=== PATIENT | female | born 2000 | race Caucasian/White ===

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

== ENCOUNTER 2018-03-05 20:39 | Emergency (ER) | payer MEDICAID ==
[~2018-03-05] VITALS: Ht 165.1 cm; Wt 54.4 kg
[~2018-03-05 20:39] MED LIST changes: +PSEUDOEPHEDRINE60 MG PO
--- NOTE | 2018-03-05 21:05 | NUR ---
ED Nurse Note: abdominal pain with nausea and body aches since am, no emesis, complains of lower abdomen pain that is 10/10, patient is ambulatory and is accompanied by mom
[2018-03-05 21:09] VITALS: BP 132/78
--- NOTE | 2018-03-05 21:29 | Emergency Room Report ---
History of Present Illness General Chief Complaint: Abdominal Pain Source: Patient Present Illness HPI Patient presents with complaints of mid epigastric abdominal pain diffuse abdominal cramping patient reports that she had an egg this morning around noon And since then she had increased cramping and epigastric discomfort she did vomit one time denies any diarrhea Denies any fevers however she has had some chills Denies any dysuria or frequency denies any flank pain denies any other trauma she also reports some diffuse body aches and cramping Denies any neck pain or photophobia Allergies: Coded Allergies: NO KNOWN ALLERGIES (Unverified Allergy, Unknown, 03/05/18) Patient History Past Medical History: see triage record Pertinent Family History: none Last Menstrual Period: [id number] Now: No Reviewed Nursing Documentation: PMH: Agreed; PSxH: Agreed Review of Systems All Other Systems: negative except mentioned in HPI Physical Exam Vital Signs Date Time Temp Pulse Resp B/P (MAP) Pulse Ox O2 Delivery O2 Flow Rate FiO2 03/05/18 21:02 98.8 88 91/62 97 Room Air Sp02 EP Interpretation: reviewed, normal General Appearance: well appearing, no apparent distress Head: normocephalic, atraumatic Eyes: bilateral eye PERRL, bilateral eye EOMI ENT: hearing grossly normal, normal pharynx, TMs + canals normal, uvula midline Neck: full range of motion, supple, no meningismus, no bony tend Respiratory: lungs clear, normal breath sounds, no rhonchi, no respiratory distress, no retraction, no accessory muscle use Cardiovascular #1: normal peripheral pulses, regular rate, rhythm, no edema, no gallop, no JVD, no murmur Gastrointestinal: normal bowel sounds, non tender - However points to the epigastric area for discomfort, soft, no mass, no organomegaly, non-distended, no guarding, no hernia, no pulsatile mass, no rebound Genitourinary: no CVA tenderness Musculoskeletal: normal inspection Neurologic: oriented x3, responsive, hydrogen plant operator III-XII nml as tested, motor strength/ tone normal, sensory intact Psychiatric: mood/affect normal Skin: normal color, no rash, warm/dry, palpation normal Lymphatic: normal inspection, no adenopathy Medical Decision Making Diagnostic Impression: Primary Impression: Abdominal pain Additional Impression: Vomiting ER Course With the patient's history and examination, multiple differentials considered, including but not limited to , ectopic , ovarian torsion, gastritis, cholecystitis, pancreatitis, appendicitis Given the patient's presentation extensive blood work initiated at this time Most of the discomfort is localized to the epigastric region lower abdomen remains soft Patient did not have any further imaging at this time blood work all within normal limits on reevaluation patient reports feeling significantly improved given the episode of vomiting and diarrhea Questionable food intake patient will have close outpatient follow-up and return with any changes Repeat abdominal exam continues to show a soft lower abdomen and appendicitis, ovarian torsion remains low on the differential Labs Test 03/05/18 22:00 White Blood Count 6.4 K/UL (4.8-10.8) Red Blood Count 5.12 M/UL (4.20-5.40) Hemoglobin 13.9 G/DL (12.0-16.0) Hematocrit 42.1 % (37.0-47.0) Mean Corpuscular Volume 82 FL (80-99) Mean Corpuscular Hemoglobin 27.2 PG (27.0-31.0) Mean Corpuscular Hemoglobin Concent 33.1 G/DL (32.0-36.0) Red Cell Distribution Width 11.7 % (11.6-14.8) Platelet Count 194 K/UL (150-450) Mean Platelet Volume 7.9 FL (6.5-10.1) Neutrophils (%) (Auto) % (45.0-75.0) Lymphocytes (%) (Auto) % (20.0-45.0) Monocytes (%) (Auto) % (1.0-10.0) Eosinophils (%) (Auto) % (0.0-3.0) Basophils (%) (Auto) % (0.0-2.0) Differential Total Cells Counted 100 Neutrophils % (Manual) 85 % (45-75) Lymphocytes % (Manual) 9 % (20-45) Monocytes % (Manual) 6 % (1-10) Eosinophils % (Manual) 0 % (0-3) Basophils % (Manual) 0 % (0-2) Band Neutrophils 0 % (0-8) Platelet Estimate Adequate Platelet Morphology Normal Red Blood Cell Morphology Normal Urine Color Yellow Urine Appearance Clear Urine pH 7 (4.5-8.0) Urine Specific [place] 1.010 (1.005-1.035) Urine Protein Negative (NEGATIVE) Urine Glucose (UA) Negative (NEGATIVE) Urine Ketones 4+ (NEGATIVE) Urine Blood Negative (NEGATIVE) Urine Nitrite Negative (NEGATIVE) Urine Bilirubin Negative (NEGATIVE) Urine Urobilinogen 1 MG/DL (0.0-1.0) Urine Leukocyte Esterase Negative (NEGATIVE) Urine HCG, Qualitative Negative (NEGATIVE) Sodium Level 139 MMOL/L (136-145) Potassium Level 4.5 MMOL/L (3.5-5.1) Chloride Level 103 MMOL/L (98-107) Carbon Dioxide Level 25 MMOL/L (21-32) Anion Gap 11 mmol/L (5-15) Blood Urea Nitrogen 12 mg/dL (7-18) Creatinine 0.8 MG/DL (0.55-1.30) Estimat Glomerular Filtration Rate > 60 mL/min (>60) Glucose Level 107 MG/DL (74-106) Calcium Level 9.4 MG/DL (8.5-10.1) Total Bilirubin 0.8 MG/DL (0.2-1.0) Aspartate Amino Transf (AST/SGOT) 15 U/L (15-37) Alanine Aminotransferase (ALT/SGPT) 18 U/L (12-78) Alkaline Phosphatase 70 U/L (46-116) Total Protein 7.8 G/DL (6.4-8.2) Albumin 4.3 G/DL (3.4-5.0) Globulin 3.5 g/dL Albumin/Globulin Ratio 1.2 (1.0-2.7) Lipase 125 U/L (73-393) Last Vital Signs Date Time Temp Pulse Resp B/P (MAP) Pulse Ox O2 Delivery O2 Flow Rate FiO2 03/05/18 21:02 98.8 88 91/62 97 Room Air Status: improved Disposition: HOME, SELF-CARE Condition: Improved Scripts Ondansetron (Zofran) 4 Mg Tablet 4 MG ORAL Q6H PRN for Nausea & Vomiting, #12 TAB Prov: Malinda Zuluaga DO 03/06/18 Additional Instructions: Patient is provided with the discharge instructions notified to follow up with primary doctor in the next 2-3 days otherwise return to the er with any worsening symptoms. Please note that this report is being documented using [employer] technology. This can lead to erroneous entry secondary to incorrect interpretation by the dictating instrument. Malinda Zuluaga DO Mar 05, 2018 21:29
[2018-03-05] MEDS ORDERED: Metoclopramide 10mg/2ml Inj IVP ONE (21:30)
[2018-03-05 22:28] LABS: APPEARANCE,URINE CLEAR; BILIRUBIN, URINE NEGATIVE (NEGATIVE); GLUCOSE, URINE (UA) NEGATIVE (NEGATIVE); HEMATOCRIT 42.1 % (37.0-47.0); HEMOGLOBIN 13.9 G/DL (12.0-16.0); KETONES,URINE 4+ (NEGATIVE); LEUKOCYTE ESTERASE ,URINE NEGATIVE (NEGATIVE); MEAN CORPUSCULAR VOLUME 82 FL (80-99); NITRITE,URINE NEGATIVE (NEGATIVE); PH,URINE 7 (4.5-8.0); PLATELET COUNT 194 K/UL (150-450); PROTEIN,URINE NEGATIVE (NEGATIVE); RED BLOOD COUNT 5.12 M/UL (4.20-5.40); RED CELL DISTRIBUTION WIDTH 11.7 % (11.6-14.8); UROBILINOGEN,URINE 1 MG/DL (0.0-1.0); WHITE BLOOD COUNT 6.4 K/UL (4.8-10.8)
[2018-03-05 22:31] LABS: COLOR,URINE YELLOW
[2018-03-05 22:37] LABS: ANION GAP 11 mmol/L (5-15); BLOOD UREA NITROGEN 12 mg/dL (7-18); CALCIUM 9.4 MG/DL (8.5-10.1); CARBON DIOXIDE 25 MMOL/L (21-32); CHLORIDE 103 MMOL/L (98-107); CREATININE 0.8 MG/DL (0.55-1.30); POTASSIUM 4.5 MMOL/L (3.5-5.1); SODIUM 139 MMOL/L (136-145)
[2018-03-05 22:41] LABS: ALANINE AMINOTRANSFERASE 18 U/L (12-78); ALBUMIN 4.3 G/DL (3.4-5.0); ALBUMIN/GLOBULIN RATIO 1.2 (1.0-2.7); ALKALINE PHOSPHATASE 70 U/L (46-116); ASPARTATE AMINO TRANSFERASE 15 U/L (15-37); BILIRUBIN,TOTAL 0.8 MG/DL (0.2-1.0)
[2018-03-06] MEDS ORDERED: ZOFRAN4 M1 ORAL (00:12)
[2018-03-06 00:30] VITALS: BP 101/60
--- NOTE | 2018-03-06 00:30 | NUR ---
ER Nurse Note: Pt seen, treated, medically treated by MURRAY. Discharge instructions and prescriptions given with repeat verbalization by pt. Instructed pt to follow up with primary care physcian within one week. Pt a&ox4, VSS, no signs of distress. IV removed; site clean and bandaged. ID band removed. Pt left with all belongings with steady gait via own transportation.
== END 2018-03-06 00:30 | disposition home or self-care (01) ==
LOC: EMR 21:11
DX: R10.13 Epigastric pain (principal); R11.10 Vomiting, unspecified
CPT/HCPCS: 36415; 80053; 81003; 81025; 83690; 85007; 85025; 96361; 96374; 99284; J2765

== ENCOUNTER 2018-08-09 03:13 | Emergency (ER) | payer MEDICAID ==
[~2018-08-09] VITALS: Ht 165.1 cm; Wt 54.4 kg
[~2018-08-09 03:13] MED LIST changes: +ZOFRAN4 M1 ORAL
[2018-08-09] MEDS ORDERED: NKM (03:20)
--- NOTE | 2018-08-09 03:35 | NUR ---
ED Nurse Note: PATIENT AMBULATED TO ED WITH C/O RASH ON BILATERAL LOWER LEGS AND SORE THROAT X4 DAYS. PT REPORTS RASH STARTED AFTER LASER HAIR REMOVAL.Pt is AO x 4times, VSS, on room air no distress. MURRAY seen Pt at bedside.
[2018-08-09 03:42] VITALS: BP 131/50
[2018-08-09] MEDS ORDERED: Lidocaine 2% Visc 15ml soln ORAL ONE (04:00)
[2018-08-09] MEDS ORDERED: PREDNISONE20 MG ORAL (04:11)
[2018-08-09] MEDS ORDERED: DIPHENHYDRAMINE25 M1 ORAL (04:11)
[2018-08-09 04:29] VITALS: BP 128/64
[2018-08-09 04:31] VITALS: BP 128/64
--- NOTE | 2018-08-09 04:31 | NUR ---
ER DISCHARGE NOTE: Patient is cleared to be discharged per ERMD, pt is aox4, on room air, with stable vital signs. pt was given dc and prescription instructions, pt was able to verbalize understanding, pt id band removed without complications. pt is able to ambulate with steady gait. pt took all belongings.
--- NOTE | 2018-08-09 05:45 | Emergency Room Report ---
History of Present Illness General Chief Complaint: Skin Rash/Abscess Source: Patient Present Illness HPI 18-year-old female presents ED for evaluation. Complaining of itchiness and rash to her legs. States that 4 days ago she had laser hair removal done and shortly after developed a rash. States it is itchy. Denies pain. Denies any known food or drug allergies. Also complaining of sore throat. Started last night. Pain is dull, 6 out of 10, nonradiating. Denies fevers or chills. Denies cough. Denies sick contacts or recent travel. No other aggravating relieving factors. Denies any other associated symptoms Allergies: Coded Allergies: NO KNOWN ALLERGIES (Unverified Allergy, Unknown, 03/05/18) Patient History Past Medical History: none Past Surgical History: none Pertinent Family History: none Social History: Denies: smoking, alcohol use, drug use Last Menstrual Period: 07/30/18 Now: No Immunizations: UTD Reviewed Nursing Documentation: PMH: Agreed; PSxH: Agreed Nursing Documentation-PMH Past Medical History: No Stated History Review of Systems All Other Systems: negative except mentioned in HPI Physical Exam Vital Signs Date Time Temp Pulse Resp B/P (MAP) Pulse Ox O2 Delivery O2 Flow Rate FiO2 08/09/18 03:15 98.4 91 14 111/46 (67) 97 Room Air Sp02 EP Interpretation: reviewed, normal General Appearance: no apparent distress, alert, GCS 15, non-toxic Head: normocephalic Eyes: bilateral eye normal inspection, bilateral eye PERRL ENT: hearing grossly normal, normal pharynx, no angioedema, normal voice, TMs + canals normal Neck: full range of motion, supple/symm/no masses Respiratory: normal inspection Cardiovascular #1: normal inspection Gastrointestinal: normal inspection Rectal: deferred Genitourinary: no CVA tenderness Musculoskeletal: normal inspection Neurologic: alert, oriented x3, responsive, motor strength/tone normal, sensory intact, speech normal Psychiatric: normal inspection Skin: rash - fine papular rash to legs. nonerythematous base Lymphatic: normal inspection Medical Decision Making Diagnostic Impression: Primary Impression: Pharyngitis Qualified Codes: J02.9 - Acute pharyngitis, unspecified Additional Impression: Rash and other nonspecific skin eruption ER Course Hospital Course 18-year-old female presents to ED with rash to legs. sore throat Differential diagnoses include: Cellulitis, dermatitis, insect bite, abscess Clinical course Patient placed on stretcher. After initial history, physical exam reveals a young female in no acute distress. On exam there fine papular rash noted to the legs. None erythematous base. No fluctuance or discharge. No pharyngeal erythema. No exudate. No lymphadenopathy. Likely viral. Because findings with patient. Will discharge with prednisone and Benadryl. Given viscous lidocaine here. given benedryl, prednisone here. Safe for discharge with close outpatient follow-up Diagnosis - pharyngitis, rash stable and discharged to home with prescription for prednisone, benedryl. Instructed to followup with PMD. Instructed return to ED if symptoms recur or worsen Last Vital Signs Date Time Temp Pulse Resp B/P (MAP) Pulse Ox O2 Delivery O2 Flow Rate FiO2 08/09/18 04:31 98.2 77 18 128/64 98 Room Air Status: improved Disposition: HOME, SELF-CARE Condition: Stable Scripts Diphenhydramine Hcl* (DIPHENHYDRAMINE HCL*) 25 Mg Capsule 25 MG ORAL Q6H PRN for Itching for 5 Days, #30 CAP 0 Refills Prov: Martir Kong MD 08/09/18 Prednisone* (PREDNISONE*) 20 Mg Tablet 40 MG ORAL DAILY, #10 TAB Prov: Martir Kong MD 08/09/18 Referrals: NON PHYSICIAN (PCP) Jeff Mooney [facility] Patient Instructions: Martir Ty MD Aug 09, 2018 05:45
== END 2018-08-09 04:53 | disposition home or self-care (01) ==
LOC: EMR 03:45
DX: J02.9 Acute pharyngitis, unspecified (principal); R21 Rash and other nonspecific skin eruption
CPT/HCPCS: 99282; J7512

== ENCOUNTER 2018-10-13 00:47 | Emergency (ER) | payer MEDICAID ==
[~2018-10-13] VITALS: Ht 165.1 cm; Wt 52.2 kg
[~2018-10-13 00:47] MED LIST changes: +DIPHENHYDRAMINE25 M1 ORAL; +PREDNISONE20 MG ORAL
[2018-10-13 01:00] VITALS: BP 102/65
--- NOTE | 2018-10-13 01:00 | NUR ---
ED Nurse Note: Esperanza walked into ED c/o bug bites that presents both feet bilaterally, patient is alert and oriented x4, states that she first noticed these rashes when she woke up, complains of 3/10 pain. will wait for further orders
[2018-10-13] MEDS ORDERED: Hydrocortisone 2.5% Oint 30gm TOPIC ONE (01:45)
[2018-10-13] MEDS ORDERED: DiphenhydrAMINE & Zinc 28g Cream TOPIC ONE (01:45)
[2018-10-13] MEDS ORDERED: Hydrocortisone 1% Cr 15gm TOPIC ONE (01:59)
[2018-10-13] MEDS ORDERED: Hydrocortisone 1% Cr 30gm TOPIC ONE (02:00)
--- NOTE | 2018-10-13 02:00 | Emergency Room Report ---
History of Present Illness General Chief Complaint: Skin Rash/Abscess Source: Patient Present Illness HPI 18-year-old female presents with multiple bites to her bilateral feet, patient endorses the bites to be itchy, severity is mild, no known aggravating relieving factors, she states she left that with no open wound over the past couple of nights, her feet were exposed. She has no screen in on her window. No fevers no chills no discharge. Allergies: Coded Allergies: NO KNOWN ALLERGIES (Unverified Allergy, Unknown, 03/05/18) Patient History Past Medical History: see triage record Last Menstrual Period: current Now: No Reviewed Nursing Documentation: PMH: Agreed; PSxH: Agreed Nursing Documentation-PMH Past Medical History: No Stated History Review of Systems All Other Systems: negative except mentioned in HPI Physical Exam Vital Signs Date Time Temp Pulse Resp B/P (MAP) Pulse Ox O2 Delivery O2 Flow Rate FiO2 10/13/18 00:53 98.2 55 18 102/65 (77) 98 Room Air Sp02 EP Interpretation: reviewed, normal General Appearance: well appearing, no apparent distress, alert Head: normocephalic, atraumatic Eyes: bilateral eye PERRL, bilateral eye EOMI ENT: uvula midline, moist mucus membranes Neck: supple, thyroid normal, supple/symm/no masses Respiratory: lungs clear, no respiratory distress, no retraction, no accessory muscle use Cardiovascular #1: normal peripheral pulses, regular rate, rhythm, no edema, no gallop, no murmur Gastrointestinal: non tender, soft, no guarding, no rebound Musculoskeletal: normal inspection Neurologic: alert, oriented x3 Psychiatric: mood/affect normal Skin: warm/dry, other - Multiple urticarial lesions on the bilateral feet, with punctate lesions in the middle no pus no drainage no fluctuance Medical Decision Making Diagnostic Impression: Primary Impression: Insect bite Qualified Codes: S90.862A - Insect bite (nonvenomous), left foot, initial encounter; W57.XXXA - Bitten or stung by nonvenomous insect and other nonvenomous arthropods, initial encounter ER Course Multiple bug bites to the feet, will provide patient with hydrocortisone cream and Benadryl cream, disposition home with return precautions Last Vital Signs Date Time Temp Pulse Resp B/P (MAP) Pulse Ox O2 Delivery O2 Flow Rate FiO2 8/24/19 01:00 98.2 69 18 102/65 98 Room Air Disposition: HOME, SELF-CARE Condition: Stable Referrals: NON PHYSICIAN (PCP) [facility] Jeff Aldana. [facility] Patient Instructions: Insect Bite, [id number] Additional Instructions: The patient was provided with discharge instructions, notified to follow-up with a primary care doctor and or specialist in the next 24-48 hours, and to return to the ED if they have worsening of their symptoms. Please note that this report is being documented using [employer] for [employer] technology. This can lead to erroneous entry secondary to incorrect interpretation by the dictating instrument. Leobardo Mcdermott MD Oct 13, 2018 02:00
[2018-10-13 02:05] VITALS: BP 115/63
== END 2018-10-13 02:05 | disposition home or self-care (01) ==
LOC: EMR 01:40
DX: S90.862A Insect bite (nonvenomous), left foot, initial encounter (principal); S90.861A Insect bite (nonvenomous), right foot, initial encounter; W57.XXXA Bitten or stung by nonvenomous insect and other nonvenomous arthropods, initial encounter; Y92.9 Unspecified place or not applicable
CPT/HCPCS: 99282

== ENCOUNTER 2018-12-02 23:15 | Emergency (ER) | payer MEDICAID ==
[~2018-12-02] VITALS: Ht 165.1 cm; Wt 52.2 kg
--- NOTE | 2018-12-02 23:33 | NUR ---
ED Nurse Note: Patient in room 6. Complaining of black coloured vaginal discharge. Denies being sexually active. Currently with MD.
--- NOTE | 2018-12-02 23:44 | Emergency Room Report ---
History of Present Illness General Chief Complaint: Female Urogenital Problems Source: Patient Present Illness [facility] This is a 18-year-old female who is a virgin. No previous sexual activity. She presents with chief complaint of vaginal itching. Onset for last 6 days. Worse in the last couple days. She noticed some darkish discharge now. She said her menstruation is about to start. Initially has whitish discharge. Mostly on the outside of the labia. No dysuria frequency. No hematuria. No douching. Allergies: Coded Allergies: NO KNOWN ALLERGIES (Unverified Allergy, Unknown, 03/05/18) Patient History Past Medical History: see triage record, old chart reviewed Past Surgical History: none Pertinent Family History: none Social History: Denies: smoking Last Menstrual Period: 11/02/18 Now: No Immunizations: other Reviewed Nursing Documentation: PMH: Agreed; PSxH: Agreed Nursing Documentation-PMH Past Medical History: No Stated History Review of Systems Eye: Denies: eye pain, blurred vision ENT: Denies: ear pain, nose congestion, throat swelling Respiratory: Denies: cough, shortness of breath Cardiovascular: Denies: chest pain, palpitations Gastrointestinal: Denies: abdominal pain, diarrhea, nausea, vomiting Musculoskeletal: Denies: back pain, joint pain Skin: Denies: rash Neurological: Denies: headache, numbness Endocrine: Denies: increased thirst, increased urine Hematologic/Lymphatic: Denies: easy bruising All Other Systems: negative except mentioned in HPI Physical Exam Vital Signs Date Time Temp Pulse Resp B/P (MAP) Pulse Ox O2 Delivery O2 Flow Rate FiO2 12/02/18 23:16 98.2 56 16 105/60 (75) 98 Room Air Vitals normal Sp02 EP Interpretation: reviewed, normal General Appearance: well appearing, no apparent distress, alert Head: normocephalic, atraumatic Eyes: bilateral eye PERRL, bilateral eye EOMI ENT: hearing grossly normal, normal pharynx Neck: full range of motion, supple, no meningismus Respiratory: chest non-tender, lungs clear, normal breath sounds Cardiovascular #1: regular rate, rhythm, no murmur Gastrointestinal: normal bowel sounds, non tender, no mass, no organomegaly, no bruit, non-distended, other - Pelvic exam done with female nurse as cribbing setter. External exam show slight whitish discharge between the labia majora and minora. I deferred the speculum exam at patient's request. Musculoskeletal: back normal, gait/station normal, normal range of motion Psychiatric: mood/affect normal Medical Decision Making Diagnostic Impression: Primary Impression: Bacterial vaginitis ER Course Presents with vaginal itching. She is not sexually active. There is moderate amount of bacteria seen. No evidence of STD. No obvious yeast infection. Will treat for possible bacterial vaginosis. Will discharge home. Last Vital Signs Date Time Temp Pulse Resp B/P (MAP) Pulse Ox O2 Delivery O2 Flow Rate FiO2 12/02/18 23:16 98.2 56 16 105/60 (75) 98 Room Air Status: unchanged Disposition: HOME, SELF-CARE Condition: Stable Scripts Metronidazole* (FLAGYL*) 500 Mg Tablet 500 MG ORAL BID, #14 TAB Prov: Nate Ruiz MD 12/03/18 Additional Instructions: Follow-up with your doctor in 7 days. Return if symptoms worsen. Nate Ruiz MD Dec 02, 2018 23:44
[2018-12-02 23:56] LABS: BILIRUBIN, URINE NEGATIVE (NEGATIVE); COLOR,URINE PALE YELLOW; GLUCOSE, URINE (UA) NEGATIVE (NEGATIVE); KETONES,URINE NEGATIVE (NEGATIVE); NITRITE,URINE NEGATIVE (NEGATIVE); PH,URINE 7 (4.5-8.0); PROTEIN,URINE NEGATIVE (NEGATIVE); UROBILINOGEN,URINE NORMAL MG/DL (0.0-1.0)
[2018-12-03 00:15] VITALS: BP 106/56
[2018-12-03 00:20] LABS: APPEARANCE,URINE SLIGHTLY CLOUDY; LEUKOCYTE ESTERASE ,URINE TRACE (NEGATIVE)
[2018-12-03 00:51] VITALS: BP 106/65
[2018-12-03] MEDS ORDERED: METRONIDAZOLE500 MG ORAL (00:52)
[2018-12-03] MEDS ORDERED: metroNIDAZOLE 500mg tab ORAL ONE (01:00)
== END 2018-12-03 00:51 | disposition home or self-care (01) ==
LOC: EMR 23:55
DX: N76.0 Acute vaginitis (principal)
CPT/HCPCS: 81003; 81025; 87210; Z7502; 99283

== ENCOUNTER 2019-10-18 07:55 | Emergency (ER) | payer MEDICAID ==
[~2019-10-18] VITALS: Ht 165.1 cm; Wt 49.0 kg
[2019-10-18 08:04] VITALS: BP 104/67
[2019-10-18 08:13] VITALS: BP 108/71
[2019-10-18] MEDS ORDERED: OFLOXACIN5 ML LEFT EAR (08:17)
--- NOTE | 2019-10-18 10:14 | Emergency Room Report ---
History of Present Illness General Chief Complaint: Earache Source: Patient Present Illness HPI 19-year-old male presents the ED for evaluation. States she is having left ear pain for the last 3 days. Dull, 7 out of 10, nonradiating. Denies fevers or chills. Denies cough. States that she swam in a pool just prior to onset of symptoms. No other aggravating relieving factors. 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 COVID-19 Screening: Negative COVID-19 COVID-19 Testing Source: [facility] Patient History Past Medical History: none Past Surgical History: none Pertinent Family History: none Social History: Denies: smoking, alcohol use, drug use Last Menstrual Period: August 2019 Now: No Immunizations: UTD Reviewed Nursing Documentation: PMH: Agreed; PSxH: Agreed Nursing Documentation-PMH Past Medical History: No Stated History Review of Systems All Other Systems: negative except mentioned in HPI Physical Exam Vital Signs Date Time Temp Pulse Resp B/P (MAP) Pulse Ox O2 Delivery O2 Flow Rate FiO2 10/18/19 07:57 97.3 71 18 104/67 (79) 99 10/18/19 08:04 Room Air Sp02 EP Interpretation: reviewed, normal General Appearance: no apparent distress, alert, GCS 15, non-toxic Head: normocephalic, atraumatic Eyes: bilateral eye normal inspection, bilateral eye PERRL ENT: hearing grossly normal, normal pharynx, no angioedema, normal voice, other - L ear canal TTP, erytthematous. normal TM Neck: full range of motion, supple/symm/no masses Respiratory: chest non-tender, lungs clear, normal breath sounds, speaking full sentences Cardiovascular #1: regular rate, rhythm, no edema Cardiovascular #2: 2+ carotid (R), 2+ carotid (L), 2+ radial (R), 2+ radial (L) , 2+ dorsalis pedis (R), 2+ dorsalis pedis (L) Gastrointestinal: normal bowel sounds, non tender, soft, non-distended, no guarding, no rebound Rectal: deferred Genitourinary: normal inspection, no CVA tenderness Musculoskeletal: back normal, normal range of motion, gait/station normal, non- tender Neurologic: alert, motor strength/tone normal, oriented x3, sensory intact, responsive, speech normal Psychiatric: judgement/insight normal, memory normal, mood/affect normal, no suicidal/homicidal ideation Reflexes: 3+ bicep (R), 3+ bicep (L), 3+ tricep (R), 3+ tricep (L), 3+ knee (R) , 3+ knee (L) Lymphatic: no adenopathy Medical Decision Making Diagnostic Impression: Primary Impression: Otitis externa Qualified Codes: H60.502 - Unspecified acute noninfective otitis externa, left ear ER Course Hospital Course 19-year-old F presents to ED with pain L ear. with drainage Differential diagnoses include: TM perforation, otitis externa, otitis media Clinical course Patient placed on stretcher. After initial history, physical exam reveals a young female in no acute distress. L TM unremarkable. L ear canal erythematous. TTP. I discussed findings with patient. Consistent with otitis externa. Will discharge home with antibiotics. Afebrile, nontoxic-appearing. Safe for discharge with close outpatient follow-up. I will provide referrals Diagnosis - otitis externa Stable and discharged to home with Rx ofloxacin otic. Followup with PMD. Return to ED if symptoms recur or worsen Last Vital Signs Date Time Temp Pulse Resp B/P (MAP) Pulse Ox O2 Delivery O2 Flow Rate FiO2 10/18/19 08:13 97.5 73 18 108/71 100 Room Air Status: improved Disposition: HOME, SELF-CARE Condition: Stable Scripts Ofloxacin (OFLOXACIN) 5 Ml Drops 10 DROP LEFT EAR DAILY for 7 Days, ML Prov: Martir Kong MD 10/18/19 Referrals: [facility],REFERRING (PCP) Jeff Mooney Comp. [facility] Patient Instructions: Otitis Externa Martir Kong MD Oct 18, 2019 10:14
== END 2019-10-18 08:15 | disposition home or self-care (01) ==
LOC: EMR 08:10
DX: H60.502 Unspecified acute noninfective otitis externa, left ear (principal)
CPT/HCPCS: 99282